=== PATIENT | female | born 1980 | race Caucasian/White ===

== ENCOUNTER 2018-10-20 20:38 | Inpatient (IN) ==
[2018-10-20] MEDS ORDERED: ONDANSETRON 4 MG/2 ML VIAL IM STA (20:51)
[2018-10-20 21:11] LABS: Basophils # 0.1 10*3/uL (0.0-0.2); Basophils % 0.5 % (0.0-0.8); Eosinophils # 0.1 10*3/uL (0.0-0.87); Eosinophils % 1.3 % (0.00-10.9); Hemoglobin 14.2 GM/DL (12.0-16.0); Immature Granulocytes % 0.4 %; Immature Granulocytes Absolute 0.04 #; Lymphocytes # 2.5 10*3/uL (1.4-4.0); Lymphocytes % 24.9 % (21.3-54.2); Mean Corpuscular HGB Conc 32.3 GM/DL (32-36); Mean Corpuscular Volume 89.6 FL (87-102); Mean Platelet Volume 10.9 FL (9.6-12.0); Monocytes % 6.5 % (1.7-12.7); Neutrophils % 66.4 % (38.7-73.9); Platelet Count 243 T/CUMM (130-400); Red Blood Count 4.91 MC/CUMM (3.8-5.5); Red Cell Distribution Width 13.6 % (9.3-17.3); White Blood Count 10.1 T/CUMM (4-12)
[2018-10-20 21:30] LABS: Alanine Aminotransferase 28 U/L (13-56); Albumin 3.5 G/DL (3.4-5.0); Alkaline Phosphatase 78 U/L (45-117); Aspartate Amino Transferase 31 U/L (0-37); Bilirubin,Total < 0.39 MG/DL (0.2-1.0); Blood Urea Nitrogen 13 MG/DL (7-18); Calcium 9.4 MG/DL (8.5-10.1); Glucose 95 MG/DL (74-106); Total Protein 7.2 G/DL (6.4-8.3)
[2018-10-20 21:47] LABS: Apearance,Urine CLEAR (Clear); Bacteria,Urine Occasional /HPF (Few); Bilirubin,Urine Negative (Negative); Blood, Urine Negative (Negative); Glucose,Urine (UA) Negative (Negative); Ketones,Urine Negative (Negative); Mucus,Urine Few /LPF (Occasional); Nitrite,Urine Negative (Negative); Protein,Urine Negative; Squamous Epithelial Cell,Urine Occasional /HPF (0-10); Urine Color Dark yellow (Yellow); Urine Specific Gravity 1.023 (1.001-1.035); Urine Urobilinogen < 2.0 EU/DL (0.2-1.0); WBC,Urine 2 /HPF (0-6)
[2018-10-20] MEDS ORDERED: SODIUM CHLORIDE 0.9% 1,000 ML IV STA (21:49)
[2018-10-20] MEDS ORDERED: KETOROLAC 30 MG/1 ML VIAL IV STA (22:08)
[2018-10-21] MEDS: PIPERACILLIN/TAZOBACTAM 3,375 MG in SODIUM CHLORIDE 0.9% 100 ML IV SCH ×3 (00:26→13:58)
[2018-10-21] MEDS: DEXTROSE 5% NACL 0.45% 1,000 ML IV SCH ×4 (00:26→22:30)
[2018-10-21 05:27] LABS: Basophils % 0.3 % (0.0-0.8); Eosinophils % 0.5 % (0.00-10.9); Hematocrit 39.7 VOL% (35.7-47.0); Hemoglobin 12.9 GM/DL (12.0-16.0); Immature Granulocytes % 0.5 %; Immature Granulocytes Absolute 0.04 #; Lymphocytes # 1.8 10*3/uL (1.4-4.0); Lymphocytes % 23.5 % (21.3-54.2); Mean Corpuscular HGB Conc 32.5 GM/DL (32-36); Mean Corpuscular Volume 89.2 FL (87-102); Mean Platelet Volume 11.6 FL (9.6-12.0); Monocytes % 8.9 % (1.7-12.7); Neutrophils % 66.3 % (38.7-73.9); Platelet Count 203 T/CUMM (130-400); Red Blood Count 4.45 MC/CUMM (3.8-5.5); Red Cell Distribution Width 13.5 % (9.3-17.3); White Blood Count 7.8 T/CUMM (4-12)
[2018-10-21 05:56] LABS: Bilirubin,Total 0.9 MG/DL (0.2-1.0); Calcium 8.3 MG/DL (8.5-10.1); Total Protein 5.9 G/DL (6.4-8.3)
[2018-10-21] MEDS: ONDANSETRON 4 MG/2 ML VIAL IV PRN ×2 (07:05→14:40)
[2018-10-21] MEDS: MORPHINE 4 MG/1 ML VIAL IV PRN ×2 (07:05→14:40)
[2018-10-21] MEDS ORDERED: SUMATRIPTAN 20 MG BOTH NARES PRN (10:15)
[2018-10-21] MEDS: PANTOPRAZOLE 40 MG TABLET PO SCH (10:20)
[2018-10-21] MEDS: clonazePAM 0.5 MG TABLET PO PRN (21:45)
[2018-10-22] MEDS: PIPERACILLIN/TAZOBACTAM 3,375 MG in SODIUM CHLORIDE 0.9% 100 ML IV SCH ×3 (00:29→17:14)
[2018-10-22 04:30] LABS: Basophils % 0.4 % (0.0-0.8); Eosinophils # 0.2 10*3/uL (0.0-0.87); Eosinophils % 2.8 % (0.00-10.9); Hemoglobin 12.7 GM/DL (12.0-16.0); Immature Granulocytes % 0.1 %; Immature Granulocytes Absolute 0.01 #; Lymphocytes # 2.3 10*3/uL (1.4-4.0); Lymphocytes % 34.4 % (21.3-54.2); Mean Corpuscular HGB Conc 31.8 GM/DL (32-36); Mean Corpuscular Volume 90.9 FL (87-102); Mean Platelet Volume 11.2 FL (9.6-12.0); Neutrophils % 55.3 % (38.7-73.9); Platelet Count 181 T/CUMM (130-400); Red Cell Distribution Width 13.8 % (9.3-17.3); White Blood Count 6.8 T/CUMM (4-12)
[2018-10-22 04:59] LABS: Albumin 2.6 G/DL (3.4-5.0); Bilirubin,Total 0.8 MG/DL (0.2-1.0); Calcium 8.4 MG/DL (8.5-10.1); Total Protein 5.7 G/DL (6.4-8.3)
[2018-10-22] MEDS: LEVOTHYROXINE 112 MCG TABLET PO SCH (06:25)
[2018-10-22] MEDS: DEXTROSE 5% NACL 0.45% 1,000 ML IV SCH ×3 (07:02→19:48)
[2018-10-22] MEDS ORDERED: NORGEST PO SCH (09:00)
[2018-10-22] MEDS ORDERED: E ESTRADIOL E ESTRAD PO SCH (09:00)
[2018-10-22] MEDS ORDERED: Biotin 5,000 MCG PO SCH (09:00)
[2018-10-22] MEDS: PANTOPRAZOLE 40 MG TABLET PO SCH (09:14)
[2018-10-22] MEDS: CALCIUM (CARBONATE) 600 MG TABLET PO SCH (09:14)
[2018-10-22] MEDS: SPIRONOLACTONE 25 MG TABLET PO SCH (09:14)
[2018-10-22] MEDS: SERTRALINE 100 MG TABLET PO SCH (09:15)
[2018-10-22] MEDS: CHOLECALCIFEROL 1,000 UNIT TABLET PO SCH (09:15)
[2018-10-22] MEDS: DOXYCYCLINE HYCLATE 100 MG CAPSULE PO SCH (09:15)
[2018-10-22] MEDS ORDERED: BUPIVACAINE MPF 0.25% /EPI 30 ML VIAL ONE (12:54)
[2018-10-22] MEDS ORDERED: TISSUE ADHESIVE 1 EACH APPLICATOR TOP ONE (12:54)
[2018-10-22] MEDS ORDERED: LIDOCAINE 1%/EPI INJ 20 ML VIAL ONE (12:55)
[2018-10-22] MEDS ORDERED: KETOROLAC 15 MG/1 ML VIAL IV PRN (15:49)
[2018-10-22] MEDS: clonazePAM 0.5 MG TABLET PO PRN (21:02)
[2018-10-23] MEDS: PIPERACILLIN/TAZOBACTAM 3,375 MG in SODIUM CHLORIDE 0.9% 100 ML IV SCH ×3 (00:52→16:43)
[2018-10-23] MEDS: DEXTROSE 5% NACL 0.45% 1,000 ML IV SCH ×4 (04:36→16:31)
[2018-10-23 05:22] LABS: Basophils % 0.5 % (0.0-0.8); Eosinophils # 0.2 10*3/uL (0.0-0.87); Eosinophils % 2.5 % (0.00-10.9); Hematocrit 40.9 VOL% (35.7-47.0); Hemoglobin 13.2 GM/DL (12.0-16.0); Immature Granulocytes % 0.2 %; Immature Granulocytes Absolute 0.01 #; Lymphocytes # 2.3 10*3/uL (1.4-4.0); Lymphocytes % 37.2 % (21.3-54.2); Mean Corpuscular HGB Conc 32.3 GM/DL (32-36); Mean Corpuscular Volume 89.9 FL (87-102); Mean Platelet Volume 11.4 FL (9.6-12.0); Monocytes % 7.2 % (1.7-12.7); Neutrophils % 52.4 % (38.7-73.9); Platelet Count 212 T/CUMM (130-400); Red Blood Count 4.55 MC/CUMM (3.8-5.5); Red Cell Distribution Width 13.6 % (9.3-17.3); White Blood Count 6.1 T/CUMM (4-12)
[2018-10-23 05:34] LABS: INR 0.9
[2018-10-23 05:51] LABS: Albumin 2.9 G/DL (3.4-5.0); Bilirubin,Total 0.8 MG/DL (0.2-1.0); Calcium 8.7 MG/DL (8.5-10.1); Total Protein 6.2 G/DL (6.4-8.3)
[2018-10-23] MEDS: LEVOTHYROXINE 112 MCG TABLET PO SCH (07:02)
[2018-10-23] MEDS ORDERED: INDOMETHACIN SUPP 50 MG SUPP RECTAL ONE (08:00)
[2018-10-23] MEDS ORDERED: LIDOCAINE 2% 5 ML VIAL ONE (09:00)
[2018-10-23] MEDS ORDERED: GLYCOPYRROLATE 0.4 MG/2 ML VIAL ONE (09:00)
[2018-10-23] MEDS ORDERED: PHENYLEPHRINE 1 MG/10 ML SYRINGE IV ONE (09:00)
[2018-10-23] MEDS ORDERED: ONDANSETRON 4 MG/2 ML VIAL ONE (09:00)
[2018-10-23] MEDS ORDERED: PROPOFOL 200 MG/20 ML VIAL IV ONE (09:00)
[2018-10-23] MEDS ORDERED: SUCCINYLCHOLINE 200 MG/10 ML VIAL ONE (09:00)
[2018-10-23] MEDS ORDERED: cefOXitin 2,000 MG in SYRINGE 1 EACH IV ONE ×2 (10:00→11:00)
[2018-10-23] MEDS: LACTATED RINGERS 1,000 ML IV SCH (12:48)
[2018-10-23] MEDS ORDERED: fentaNYL 100 MCG/2 ML VIAL ONE (13:10)
[2018-10-23] MEDS ORDERED: MIDAZOLAM 2 MG/2 ML VIAL ONE (13:10)
[2018-10-23] MEDS ORDERED: SEVOFLURANE 1 UNIT/15 MINUTE INH ONE (14:15)
[2018-10-23] MEDS: DOXYCYCLINE HYCLATE 100 MG CAPSULE PO SCH (16:36)
[2018-10-23] MEDS: CHOLECALCIFEROL 1,000 UNIT TABLET PO SCH (16:36)
[2018-10-23] MEDS: PANTOPRAZOLE 40 MG TABLET PO SCH (16:36)
[2018-10-23] MEDS: SPIRONOLACTONE 25 MG TABLET PO SCH (16:36)
[2018-10-23] MEDS: CALCIUM (CARBONATE) 600 MG TABLET PO SCH (16:36)
[2018-10-23] MEDS: SERTRALINE 100 MG TABLET PO SCH (16:37)
[2018-10-23] MEDS ORDERED: FAMOTIDINE 20 MG TABLET PO ONE (18:23)
[2018-10-23] MEDS: clonazePAM 0.5 MG TABLET PO PRN (21:41)
[2018-10-24] MEDS: PIPERACILLIN/TAZOBACTAM 3,375 MG in SODIUM CHLORIDE 0.9% 100 ML IV SCH ×3 (01:19→16:30)
[2018-10-24] MEDS: DEXTROSE 5% NACL 0.45% 1,000 ML IV SCH ×4 (03:37→10:30)
[2018-10-24] MEDS ORDERED: FAMOTIDINE 20 MG TABLET PO ONE (04:30)
[2018-10-24] MEDS ORDERED: cefOXitin 2,000 MG in SYRINGE 1 EACH IV ONE ×2 (04:30→11:10)
[2018-10-24 04:36] LABS: Basophils % 0.4 % (0.0-0.8); Eosinophils # 0.2 10*3/uL (0.0-0.87); Eosinophils % 2.7 % (0.00-10.9); Hematocrit 39.1 VOL% (35.7-47.0); Hemoglobin 12.7 GM/DL (12.0-16.0); Immature Granulocytes % 0.4 %; Immature Granulocytes Absolute 0.03 #; Lymphocytes # 2.4 10*3/uL (1.4-4.0); Mean Corpuscular HGB Conc 32.5 GM/DL (32-36); Mean Corpuscular Volume 88.1 FL (87-102); Mean Platelet Volume 11.3 FL (9.6-12.0); Monocytes % 7.1 % (1.7-12.7); Neutrophils % 57.4 % (38.7-73.9); Platelet Count 228 T/CUMM (130-400); Red Blood Count 4.44 MC/CUMM (3.8-5.5); Red Cell Distribution Width 13.2 % (9.3-17.3); White Blood Count 7.5 T/CUMM (4-12)
[2018-10-24 04:59] LABS: Albumin 2.9 G/DL (3.4-5.0); Bilirubin,Total 0.7 MG/DL (0.2-1.0); Calcium 8.4 MG/DL (8.5-10.1); Total Protein 5.9 G/DL (6.4-8.3)
[2018-10-24] MEDS: LEVOTHYROXINE 112 MCG TABLET PO SCH (07:19)
[2018-10-24] MEDS: LACTATED RINGERS 1,000 ML IV SCH (08:00)
[2018-10-24] MEDS ORDERED: TISSUE ADHESIVE 1 EACH APPLICATOR TOP ONE (10:08)
[2018-10-24] MEDS ORDERED: BUPIVACAINE MPF 0.25% /EPI 30 ML VIAL ONE (10:08)
[2018-10-24] MEDS ORDERED: LIDOCAINE 1%/EPI INJ 20 ML VIAL ONE (10:09)
[2018-10-24] MEDS ORDERED: SUGAMMADEX 200 MG/2 ML VIAL IV ONE (11:48)
[2018-10-24] MEDS ORDERED: MIDAZOLAM 2 MG/2 ML VIAL ONE (12:19)
[2018-10-24] MEDS ORDERED: fentaNYL 100 MCG/2 ML VIAL ONE (12:20)
[2018-10-24] MEDS ORDERED: PROPOFOL 200 MG/20 ML VIAL IV ONE (12:22)
[2018-10-24] MEDS ORDERED: ePHEDrine 50 MG/ML AMP ONE (12:23)
[2018-10-24] MEDS ORDERED: ONDANSETRON 4 MG/2 ML VIAL ONE ×2 (12:24→12:28)
[2018-10-24] MEDS ORDERED: ROCURONIUM 100 MG/10 ML VIAL IV ONE (12:24)
[2018-10-24] MEDS ORDERED: DEXAMETHASONE 4 MG/1 ML VIAL ONE (12:24)
[2018-10-24] MEDS ORDERED: SUCCINYLCHOLINE 200 MG/10 ML VIAL ONE (12:24)
[2018-10-24] MEDS ORDERED: SEVOFLURANE 1 UNIT/15 MINUTE INH ONE (12:28)
[2018-10-24] MEDS ORDERED: HYDROmorphone 2 MG/1 ML VIAL ONE (12:28)
[2018-10-24] MEDS ORDERED: HYDROmorphone 2 MG/1 ML VIAL IV PRN (12:28)
[2018-10-24] MEDS ORDERED: ONDANSETRON 4 MG/2 ML VIAL IV PRN (12:28)
[2018-10-24] MEDS: DOXYCYCLINE HYCLATE 100 MG CAPSULE PO SCH (14:53)
[2018-10-24] MEDS: CALCIUM (CARBONATE) 600 MG TABLET PO SCH (14:53)
[2018-10-24] MEDS: CHOLECALCIFEROL 1,000 UNIT TABLET PO SCH (14:53)
[2018-10-24] MEDS: PANTOPRAZOLE 40 MG TABLET PO SCH (14:54)
[2018-10-24] MEDS: SPIRONOLACTONE 25 MG TABLET PO SCH (14:54)
[2018-10-24] MEDS: SERTRALINE 100 MG TABLET PO SCH (14:54)
[2018-10-24 20:29] VITALS: BP 132/84
== END 2018-10-24 17:48 | disposition home or self-care (01) | DRG 418 ==
LOC: N.ED 20:38 → OBSVTOIN 22:22 → N.EDINP 22:22 → INTOOBSV 22:22 → N.3E 22:40
PROVIDERS: ADMIT Surgery; ATTEND Surgery
PROC: ERCPWSP (ICD-10-PCS; 2018-10-23 11:50)
PROC: LAPCHOL (2018-10-24 10:54)